=== PATIENT | female | born 1985 | race Two or more races ===

== ENCOUNTER 2016-07-18 05:17 | Emergency (ER) | payer SELFPAY ==
[~2016-07-18] VITALS: Ht 170.2 cm; Wt 72.6 kg
[~2016-07-18 05:17] MED LIST: HYDR-3652
[2016-07-18 05:31] VITALS: BP 134/83
[2016-07-18] MEDS ORDERED: FLUORESCEIN SODIUM OPHTH 1 EA STRIP ONE (05:38)
[2016-07-18] MEDS ORDERED: TETRACAINE HCL/PF 0.5% UD 2 ML BOTTLE ONE (05:38)
[2016-07-18] MEDS ORDERED: FLUORESCEIN SODIUM OPHTH 1 EA STRIP OP ONE (06:00)
[2016-07-18] MEDS ORDERED: TETRAcaine 5 ML BOTTLE EACHEYE ONE (06:00)
== END 2016-07-18 05:54 | disposition home or self-care (01) ==
LOC: ER 05:17
DX: S05.01XA Injury of conjunctiva and corneal abrasion without foreign body, right eye, initial encounter (principal); F17.200 Nicotine dependence, unspecified, uncomplicated; X58.XXXA Exposure to other specified factors, initial encounter; Y93.89 Activity, other specified; Y92.89 Other specified places as the place of occurrence of the external cause; Y99.8 Other external cause status
CPT/HCPCS: 99283; A4606; Z7610

== ENCOUNTER 2019-10-17 03:13 | Emergency (ER) | payer MEDICAID ==
[~2019-10-17] VITALS: Ht 170.2 cm; Wt 72.6 kg
[2019-10-17 03:13] VITALS: BP 122/71
[~2019-10-17 03:13] MED LIST changes: -HYDR-3652; +HYDR-4209
--- NOTE | 2019-10-17 03:40 | NUR ---
PT NOT IN ROOM FOR BLOOD DRAW. PT ELOPED
== END 2019-10-17 04:14 | disposition left against medical advice (07) ==
LOC: ER 03:18
DX: O20.8 Other hemorrhage in early pregnancy (principal); Z3A.22 22 weeks gestation of pregnancy; Z79.899 Other long term (current) drug therapy